=== PATIENT | female | born 1980 | race Caucasian/White ===

== ENCOUNTER 2016-05-22 09:12 | Emergency (ER) | payer OTHER ==
[2016-05-22 10:26] LABS: Basophils % (Auto) 0.4 % (0.0-1.8); Eosinophils % (Auto) 1.7 % (0.0-4.3); Hematocrit 41.4 % (30.3-42.9); Hemoglobin 13.8 gm/dl (10.1-14.3); Mean Corpuscular HGB Conc 33 % (30-34); Mean Corpuscular Hemoglobin 30 pg (28-32); Mean Corpuscular Volume 91 fl (79-97); Platelet Count 213 K/mm3 (140-440); Red Blood Count 4.57 M/mm3 (3.65-5.03); Red Cell Distribution Width 13.3 % (13.2-15.2); White Blood Count 8.2 K/mm3 (4.5-11.0)
[2016-05-22 10:43] LABS: Anion Gap 16 mmol/L; Blood Urea Nitrogen 11 mg/dL (7-17); Calcium 8.8 mg/dL (8.4-10.2); Carbon Dioxide 22 mmol/L (22-30); Chloride 102.4 mmol/L (98-107); Glucose 96 mg/dL (65-100); Potassium 4.1 mmol/L (3.6-5.0); Sodium 136 mmol/L (137-145)
--- NOTE | 2016-05-22 16:54 | Emergency Department Report ---
HPI - General Chief Complaint: Extremity Problem,Nontraumatic Time Seen by Provider: 05/22/16 16:07 - HPI HPI: This is a 35-year-old female presents to the emergency department with a 2 week history of some midsternal chest pressure and left arm weakness and decreased sensation. All the symptoms are intermittent. The patient also has an occasional frontal headache. She denies any current chest pain. The arm is not numb but it is decreased in sensation compared to the right arm. She denies any vision change, shortness of breath, back pain, nausea, vomiting or diaphoresis. The patient is not a tobacco smoker and denies any illicit drug use. She sees different physicians but does not have a particular primary care doctor. She denies any past medical history. She has not taken anything for symptoms prior to presentation. No recent travel or sick contacts at home. She denies any slurred speech, problems with ambulation, confusion. ED Past Medical Hx - Past Medical History Previous Medical History?: No - Surgical History Past Surgical History?: No - Social History Smoking Status: Never Smoker Substance Use Type: None - Medications Home Medications: Home Medications Medication Instructions Recorded Confirmed Last Taken Type No Known Home Medications [No 05/22/16 05/22/16 Unknown History Reported Home Medications] ED Review of Systems ROS: Stated complaint: LEFT ARM PAIN Other details as noted in HPI Comment: All other systems reviewed and negative Constitutional: weakness. denies: chills, fever Eyes: denies: eye pain, eye discharge, vision change ENT: denies: ear pain, throat pain Respiratory: denies: cough, shortness of breath, wheezing Cardiovascular: chest pain. denies: palpitations Gastrointestinal: denies: abdominal pain, nausea, diarrhea Genitourinary: denies: urgency, dysuria, discharge Musculoskeletal: denies: back pain, joint swelling, arthralgia Skin: denies: rash, lesions Neurological: headache, other (decreased sensation to the LUE). denies: paresthesias Physical Exam - Physical Exam Vital Signs: Vital Signs 05/22/16 05/22/16 05/22/16 09:32 14:43 14:45 Temperature 98 F Pulse Rate 71 70 Respiratory 22 Rate Blood Pressure 127/80 131/62 O2 Sat by Pulse 99 98 100 Oximetry 03/23/17 03/23/17 03/23/17 14:51 14:55 15:01 Temperature Pulse Rate 69 72 72 Respiratory 15 13 13 Rate Blood Pressure 131/62 131/62 131/102 O2 Sat by Pulse 100 99 99 Oximetry 05/22/16 05/22/16 05/22/16 15:02 15:05 15:11 Temperature Pulse Rate 69 64 Respiratory 18 15 15 Rate Blood Pressure 131/102 131/102 O2 Sat by Pulse 98 99 99 Oximetry 05/22/16 05/22/16 05/22/16 15:15 15:21 15:25 Temperature Pulse Rate 68 71 66 Respiratory 17 13 14 Rate Blood Pressure 131/102 131/102 131/102 O2 Sat by Pulse 99 99 99 Oximetry 05/22/16 05/22/16 05/22/16 15:31 15:35 15:41 Temperature Pulse Rate 76 68 71 Respiratory 19 12 13 Rate Blood Pressure 131/102 131/102 131/102 O2 Sat by Pulse 100 100 100 Oximetry 05/22/16 05/22/16 05/22/16 15:45 15:51 15:55 Temperature Pulse Rate 66 68 Respiratory 12 14 13 Rate Blood Pressure 131/102 131/102 131/102 O2 Sat by Pulse 100 100 100 Oximetry 05/22/16 05/22/16 05/22/16 16:01 16:05 16:11 Temperature Pulse Rate 76 68 72 Respiratory 17 15 20 Rate Blood Pressure 100/54 100/54 100/54 O2 Sat by Pulse 100 99 100 Oximetry 05/22/16 16:15 Temperature Pulse Rate 73 Respiratory 16 Rate Blood Pressure 100/54 O2 Sat by Pulse 99 Oximetry Physical Exam: GENERAL: The patient is well-developed well-nourished. HEENT: Normocephalic. Atraumatic. Extraocular motions are intact. Patient has moist mucous membranes. Pupils equal reactive to light bilaterally. NECK: Supple. Trachea is midline. CHEST/LUNGS: Clear to auscultation. There is no respiratory distress noted. HEART/CARDIOVASCULAR: Regular. There is no tachycardia. There is no gallop rub or murmur. ABDOMEN: Abdomen is soft, nontender. Patient has normal bowel sounds. There is no abdominal distention. SKIN: Skin is warm and dry. NEURO: The patient is awake, alert, and oriented. The patient is cooperative. The patient has no focal neurologic deficits. The patient has normal speech. Cranial nerves II through XII grossly intact. No pronator drift. No dysmetria. MUSCULOSKELETAL: There is no tenderness or deformity. There is no limitation range of motion. There is no evidence of acute injury. Muscle joint 5 out of 5 upper and lower extremities bilaterally. Cap refill less than 2 seconds. Radial pulses +2 over 4 bilaterally. ED Course Vital Signs 05/22/16 05/22/16 05/22/16 09:32 14:43 14:45 Temperature 98 F Pulse Rate 71 70 Respiratory 22 Rate Blood Pressure 127/80 131/62 O2 Sat by Pulse 99 98 100 Oximetry 05/22/16 05/22/16 05/22/16 14:51 14:55 15:01 Temperature Pulse Rate 69 72 72 Respiratory 15 13 13 Rate Blood Pressure 131/62 131/62 131/102 O2 Sat by Pulse 100 99 99 Oximetry 05/22/16 05/22/16 05/22/16 15:02 15:05 15:11 Temperature Pulse Rate 69 64 Respiratory 18 15 15 Rate Blood Pressure 131/102 131/102 O2 Sat by Pulse 98 99 99 Oximetry 05/22/16 05/22/16 05/22/16 15:15 15:21 15:25 Temperature Pulse Rate 68 71 66 Respiratory 17 13 14 Rate Blood Pressure 131/102 131/102 131/102 O2 Sat by Pulse 99 99 99 Oximetry 05/22/16 05/22/16 05/22/16 15:31 15:35 15:41 Temperature Pulse Rate 76 68 71 Respiratory 19 12 13 Rate Blood Pressure 131/102 131/102 131/102 O2 Sat by Pulse 100 100 100 Oximetry 05/22/16 05/22/16 05/22/16 15:45 15:51 15:55 Temperature Pulse Rate 66 68 Respiratory 12 14 13 Rate Blood Pressure 131/102 131/102 131/102 O2 Sat by Pulse 100 100 100 Oximetry 05/22/16 05/22/16 05/22/16 16:01 16:05 16:11 Temperature Pulse Rate 76 68 72 Respiratory 17 15 20 Rate Blood Pressure 100/54 100/54 100/54 O2 Sat by Pulse 100 99 100 Oximetry 05/22/16 16:15 Temperature Pulse Rate 73 Respiratory 16 Rate Blood Pressure 100/54 O2 Sat by Pulse 99 Oximetry ED Medical Decision Making - Lab Data Result diagrams: 05/22/16 09:52 05/22/16 09:52 - EKG Data -: EKG Interpreted by Me EKG shows normal: sinus rhythm, axis, intervals, QRS complexes, ST-T waves Rate: normal - EKG Data When compared to previous EKG there are: previous EKG unavailable Interpretation: normal EKG - Radiology Data Radiology results: report reviewed, image reviewed interpreted by me: Chest x-ray did not show any acute process. Heart is normal shape and size. No effusions. No pneumothorax. No signs of pneumonia seen. CT of the head does not show any acute process including no hemorrhage, mass, shift, diffuse edema or skull fracture. - Medical Decision Making This is a 35-year-old female presents to the emergency department with the complaints of chest pain and some weakness and/or decreased sensation to the left upper arm. However the symptoms been going on for the past 2 weeks. The patient currently denies any chest pain. On physical exam the patient has full muscle strength, 5 out of 5, 2 upper and lower extremities. There are no focal , motor or sensory deficits. No pronator drift or dysmetria. Cranial nerves are all intact. Regarding her chest discomfort, the patient would be a USAMA score of 0. Regarding the left upper extremity weakness and/or numbness, it is more of a decreased sensation then actual numbness, and the patient would be a 1 at most if given the NIH stroke scale. However currently the patient does not appear to have any type of decreased sensation. There is no facial asymmetry or slurred speech. Patient's labs have been unremarkable including negative troponins 2. She had a CT of the head that did not show any bleed, shift, mass or any acute process. Chest x-ray also did not show any acute process. Patient appears safe for discharge home. She'll be given referrals for primary care and cardiology. She will return to the ER with any worsening of her symptoms or any acute distress. She understands and agrees to the plan. - Differential Diagnosis TIA, OK, costochondritis, pneumonia, neuropathy Critical Care Time: No Critical care attestation.: If time is entered above; I have spent that time in minutes in the direct care of this critically ill patient, excluding procedure time. ED Disposition Clinical Impression: Arm weakness Chest pain Qualifiers: Chest pain type: unspecified Qualified Code(s): R07.9 - Chest pain, unspecified Disposition: DISCHARGED TO HOME OR SELFCARE Is pt being admited?: No Condition: Stable Instructions: Chest Pain (ED), Weakness (ED) Additional Instructions: Please follow-up with a primary care doctor in the next few days. I also given your referral for a local cma, clarice Durán he would like to follow-up regarding your intermittent chest discomforts and get an outpatient stress test. Return to the emergency department with any worsening of her symptoms, altered mental status, slurred speech, facial asymmetry, or any acute distress. Referrals: PRIMARY CARE, [Primary Care Provider] - 3-5 Days MARIA ELENA AZAR MD [Staff Physician] - 3-5 Days SHAWN CURRIE MD [Staff Physician] - 3-5 Days Time of Disposition: 18:40 Print Language: MOHAWK
[2016-05-22 17:47] LABS: Bilirubin,Urine NEG (Negative); Blood,Urine SM (Negative); Ketones,Urine NEG (Negative); Leukocyte Esterase,Urine LG (Negative); Mucus,Urine FEW /HPF; Nitrite,Urine NEG (Negative); Protein,Urine <15 mg/dL mg/dL (Negative); Urobilinogen,Urine < 2.0 mg/dL (<2.0)
--- NOTE | 2016-05-22 18:21 | Cat Scan Report ---
FINAL REPORT EXAM: CT HEAD/BRAIN WO CON HISTORY: Headache TECHNIQUE: CT examination of the head without IV contrast PRIORS: None. FINDINGS: No acute air-fluid level visualized in the included air-filled sinuses. Bone windows demonstrate no fracture. The brain is without mass, mass effect, hemorrhage, or acute infarct. There is no extra-axial intracranial bleed, brain bleed, or midline shift. The ventricles and sulci are age-appropriate. IMPRESSION: No acute CVA, intracranial bleed, or brain mass
[2016-05-22 18:44] VITALS: BP 118/70
--- NOTE | 2016-05-23 08:41 | XRay Report ---
PORTABLE CHEST INDICATION: Chest pain COMPARISON: None similar. FINDINGS: Portable, frontal chest radiograph demonstrates limited inspiration with slightly crowded lung markings and mild exaggerated cardiomediastinal silhouette. No pleural effusions or CHF. EKG leads. Intact bones. Right hemidiaphragm slightly elevated. CONCLUSION: No definite acute chest process, as described. Thank you for the opportunity to participate in this patient's care.
== END 2016-05-22 18:56 | disposition home or self-care (01) ==
LOC: ED 09:12
DX: R07.81 Pleurodynia (principal); M62.81 Muscle weakness (generalized)
CPT/HCPCS: 36415; 70450; 71010; 80048; 81001; 81025; 84484; 85025; 93005; 93010